=== PATIENT | male | born 1990 | race Caucasian/White ===

== ENCOUNTER 2017-08-14 21:47 | Emergency (ER) | payer OTHER ==
[2017-08-14 22:24] VITALS: BP 150/102; PULSE 91; RESP 18; TEMP 98.7; O2SAT 100
--- NOTE | 2017-08-14 22:25 | ED PDOC ---
HPI: Wound Care - HPI Time Seen by Provider: 08/14/17 22:25 Chief Complaint (Nursing): Finger,Hand,&Wrist Chief Complaint (Provider): finger laceration History Per: Patient Additional Complaint(s): 27-year-old right-hand dominant male presents to emergency Department with avulsion laceration to the left thumb sustained when he was cutting a bagel and accidentally cut his finger with a knife at 9 pm this evening. Patient applied pressure dressing and came right to ED. He is not sure of last tetanus. Patient denies any acute pain, denies numbness or tingling to the affected area. PMD: Dr. Stewart in [place], [place] Past Medical History Reviewed: Historical Data, Nursing Documentation, Vital Signs Vital Signs: Last Vital Signs Temp 98.7 F 08/14/17 22:18 Pulse 91 H 08/14/17 22:18 Resp 18 08/14/17 22:18 BP 150/102 H 08/14/17 22:18 Pulse Ox 100 08/14/17 22:18 - Medical History PMH: No Chronic Diseases - Surgical History Surgical History: Hernia Repair - Family History Family History: States: No Known Family Hx - Living Arrangements Living Arrangements: With Friends/Others - Social History Current smoker - smoking cessation education provided: No Alcohol: Social Drugs: Denies - Immunization History Hx Tetanus Toxoid Vaccination: No (not sure of last booster) - Allergies Allergies/Adverse Reactions: Allergies Allergy/AdvReac Type Severity Reaction Status Date / Time No Known Allergies Allergy Verified 08/14/17 22:35 Review of Systems ROS Statement: Except As Marked, All Systems Reviewed And Found Negative Musculoskeletal: Positive for: Other (Avulsion laceration left thumb) Physical Exam - Reviewed Nursing Documentation Reviewed: Yes Vital Signs Reviewed: Yes - Physical Exam Appears: Positive for: Well, Non-toxic, No Acute Distress Skin: Negative for: Rash Eye Exam: Positive for: Normal appearance Extremity: Positive for: Other (1 cm superficial avulsion laceration noted to the finger pad of left thumb with mild active bleeding, fingernail intact, normal distal sensation, mild tenderness to palpation) Neurologic/Psych: Positive for: Alert, Oriented - ECG O2 Sat by Pulse Oximetry: 100 Pulse Ox Interpretation: Normal Medical Decision Making Medical Decision Making: Impression: Avulsion laceration to left thumb. Plan: Tetanus booster Gelfoam dressing Procedure note: Wound cleansed with normal saline, Gelfoam applied overlying open wound, secured with gauze wrap, neurovascular intact status post placement. Procedure was tolerated well by patient with no complications. Patient was given wound care instructions. Disposition - Clinical Impression Clinical Impression: Skin avulsion, Requires a booster tetanus - Patient ED Disposition Is Patient to be Admitted: No Counseled Patient/Family Regarding: Diagnosis, Need For Followup - Disposition Referrals: [facility] [Outside] Disposition Time: 22:56 Condition: STABLE Additional Instructions: Keep dressing in place for 2 days. After 2 days remove gauze and foam. Wound will continue to heal from there. Take ibuprofen as needed for pain. Ice and elevate affected area as off as possible. Follow-up in 2-3 days with primary doctor. Instructions: Skin Avulsion (ED), Diphtheria/Acellular Pertussis/Tetanus Booster Vaccine (Tdap) (Injection) Forms: [employer] ([place])
[2017-08-14] MEDS ORDERED: Absorbable Gelatin Sponge Size 12-7 TP STA (22:35)
[2017-08-14] MEDS ORDERED: Absorbable Gelatin Sponge Size 12-7 ONE (22:38)
== END 2017-08-14 23:15 | disposition home or self-care (01) ==
LOC: H.ER 21:47
DX: S61.012A Laceration without foreign body of left thumb without damage to nail, initial encounter (principal); Z23 Encounter for immunization; W26.0XXA Contact with knife, initial encounter; Y93.G1 Activity, food preparation and clean up